=== PATIENT | male | born 1960 | race African-American/Black ===

== ENCOUNTER 2022-11-17 08:21 | Emergency (ER) | payer BC ==
[2022-11-17] MEDS ORDERED: ACETAMINOPHEN 325 MG TABLET (FP) PO ONE (08:38)
[2022-11-17 08:45] VITALS: BP 124/94; PULSE 103; RESP 20; BMI 28.3
[2022-11-17 09:58] VITALS: TEMP 99.8
== END 2022-11-17 10:56 | disposition home or self-care (01) ==
LOC: FER 08:21
DX: R50.9 Fever, unspecified (principal); R05.9 Cough, unspecified; U07.1 COVID-19
CPT/HCPCS: 0241U-QW; 99283-25